=== PATIENT | male | born 1945 | race Caucasian/White ===

== ENCOUNTER 2019-02-04 12:17 | Emergency (ER) | payer MEDICARE, OTHER ==
[~2019-02-04] VITALS: Ht 162.6 cm; Wt 78.9 kg
--- NOTE | 2019-02-04 13:40 | RAD ---
EXAM: Right femur, 3 views. HISTORY: Chainsaw injury. COMPARISON: None. FINDINGS: 3 views of the right hip are obtained. There is no fracture, dislocation or subluxation. No radiodense foreign body is seen. There is minimal enthesopathy along the superior patella. There are vascular calcifications. IMPRESSION: No acute osseous finding or radiodense foreign body. Electronically signed by: Judi Beard MD (02/04/2019 1:37 PM) [place] [id number]
--- NOTE | 2019-02-04 13:44 | PHYS DOC ---
Past Medical History Past Medical History: CAD, GERD, High Cholesterol, Hypertension, Prostatitis Additional Past Medical Histor: CHRONIC BACK PAIN Past Surgical History: Cholecystectomy, Other Additional Past Surgical Histo: (L) FOOT REPAIR, LUNG/LYMPH/DIAPHRAM/KIDNEY STENT Alcohol Use: Rarely Drug Use: None Adult General Chief Complaint Chief Complaint: LACERATION/AVULSION [facility] HPI Patient is a 73 year old male, accompanied by his , who presents to the emergency department with complaints of a laceration to his right leg. Patient states he was using a chainsaw to cut down a cedar tree when the chainsaw kicked back and cut his right thigh. Patient denies any numbness, tingling, or weakness. He denies any decreased range of motion of his right knee. Patient states his last tetanus was approximately one year ago. He currently rates his pain a 5 out of 10 on pain scale, he denies any alleviating factors, the pain increases of the area is touched. All other ROS is neg unless otherwise noted in HPI. Review of Systems Review of Systems See Above Current Medications Current Medications Current Medications Medications (Trade) Dose Ordered Sig/Cici Start Time Stop Time Status Last Admin Dose Admin Lidocaine/ Epinephrine (LIDOCAINE 1%-EPI 1:100,000 Multi-Dose) 20 ml 1X ONCE 02/04/19 14:00 02/04/19 14:01 DC 02/04/19 14:13 20 ML Allergies Allergies Allergies Coded Allergies Type Severity Reaction Last Updated Verified bupropion Allergy Unknown 02/04/19 Yes hydromorphone Allergy Unknown 02/04/19 Yes tetracycline Allergy Unknown 02/04/19 Yes Physical Exam Physical Exam See Above Constitutional: Well developed, well nourished, no acute distress, non-toxic appearance. [] HENT: Normocephalic, atraumatic, bilateral external ears normal, nose normal. [] Eyes: PERRLA, EOMI, conjunctiva normal, no discharge. [] Neck: Normal range of motion, no stridor. [] Cardiovascular:Heart rate regular rhythm Lungs & Thorax: Respirations even and unlabored, no retractions, no respiratory distress Skin: Warm, dry, no erythema, no rash' 2 lacerations noted to the distal end of right thigh the superior laceration measures approximately 3 cm, the inferior laceration measures approximately 8 cm, no active bleeding from either site. [] Back: No tenderness Extremities: RLE: No bony tenderness, no cyanosis, no clubbing, ROM intact, no edema. [] Neurologic: Alert and oriented X 3, normal motor function, normal sensory function, no focal deficits noted. [] Psychologic: Affect normal, judgement normal, mood normal. [] Current Patient Data Vital Signs Vital Signs Date Time Temp Pulse Resp B/P (MAP) Pulse Ox O2 Delivery O2 Flow Rate FiO2 02/04/19 15:25 72 18 121/65 (83) 98 Room Air 02/04/19 12:39 97.6 97.6 EKG EKG [] Radiology/Procedures Radiology/Procedures PROCEDURE: RIGHT FEMUR XRAY EXAM: Right femur, 3 views. HISTORY: Chainsaw injury. COMPARISON: None. FINDINGS: 3 views of the right hip are obtained. There is no fracture, dislocation or subluxation. No radiodense foreign body is seen. There is minimal enthesopathy along the superior patella. There are vascular calcifications. IMPRESSION: No acute osseous finding or radiodense foreign body. Laceration #1 Repair by me: Anesthesia: 1% lidocaine locally Location: right superior thigh Tendon/Joint/Nerves: No injury Foreign body: None detected after copious irrigation and exploration with 180 ml of NS Technique: 6 Simple Interrupted Sutures with 4-0 prolene Complexity: No subcutaneous sutures/mucosal repair/edge excision Post Closure Length: 3 cm Laceration #2 Repair by me: Anesthesia: 1% lidocaine locally Location: right inferior anterior thigh Tendon/Joint/Nerves: No injury Foreign body: None detected after copious irrigation and exploration with 240 ml of NS Technique: 18 Simple Interrupted Sutures with 4-0 prolene Complexity: No subcutaneous sutures/mucosal repair/edge excision Post Closure Length: 8 cm Patient's bleeding was easily controlled in the department and there is no indication of anemia. No evidence of compartment syndrome, neurologic injury, vascular injury, open joint, tendon laceration, or foreign body. Patient is appropriate for outpatient follow up. [] Course & Med Decision Making Course & Med Decision Making Pertinent Labs and Imaging studies reviewed. (See chart for details) [] Dragon Disclaimer Dragon Disclaimer This electronic medical record was generated, in whole or in part, using a voice recognition dictation system. Departure Departure Impression: Primary Impression: Laceration of right thigh without complication Disposition: HOME, SELF-CARE Condition: STABLE Referrals: UNKNOWN PCP NAME (PCP) Patient Instructions: Laceration Care, Adult, [id number] Additional Instructions: Fill the prescription and use it as directed. Keep the area clean and dry. You may take Tylenol or ibuprofen as needed for pain. Keep the dressing that was placed today on for 24 hours then change the dressing twice a day and apply antibiotic ointment to the area. Follow-up with your primary care doctor, or return to the emergency room in 14 days to have the sutures removed, sooner if you develop signs of infection including: redness, warmth, drainage, or a fever. Scripts Cephalexin (CEPHALEXIN) 500 Mg Capsule 1 CAP PO TID for 7 Days, #21 CAP 0 Refills Prov: JEAN ESTRELLA APRN 02/04/19 Problem Qualifiers Primary Impression: Laceration of right thigh without complication Encounter type: initial encounter Qualified Codes: S71.111A - Laceration without foreign body, right thigh, initial encounter JEAN ESTRELLA [employer] Feb 04, 2019 13:44
[2019-02-04] MEDS ORDERED: LIDOCAINE 1%/EPI 1:100,000 20 ML VIAL. SQ ONE (14:00)
[2019-02-04 15:25] VITALS: BP 121/65
[2019-02-04] MEDS ORDERED: CEPH500C PO (15:26)
== END 2019-02-04 15:45 | disposition home or self-care (01) ==
LOC: ER 12:17
DX: S71.111A Laceration without foreign body, right thigh, initial encounter (principal); K21.9 Gastro-esophageal reflux disease without esophagitis; E78.00 Pure hypercholesterolemia, unspecified; I10 Essential (primary) hypertension; I25.10 Atherosclerotic heart disease of native coronary artery without angina pectoris; G89.29 Other chronic pain; Z88.5 Allergy status to narcotic agent; Z88.1 Allergy status to other antibiotic agents; Z88.8 Allergy status to other drugs, medicaments and biological substances; W29.3XXA Contact with powered garden and outdoor hand tools and machinery, initial encounter; Y93.89 Activity, other specified; Y92.89 Other specified places as the place of occurrence of the external cause; Y99.8 Other external cause status
CPT/HCPCS: 12004; 73552; 99284; J3490; 12002